=== PATIENT | male | born 1980 | race Two or more races ===

== ENCOUNTER 2024-04-19 10:28 | Inpatient (IN) | payer MEDICAID ==
[~2024-04-19] VITALS: Ht 170.2 cm; Wt 88.0 kg
[2024-04-19] MEDS: IV D5W-0.45% NS +20 KCL 1,000 ML IV PRN (07:30)
[~2024-04-19 10:28] MED LIST: PROPOFOL 200 MG/20 ML BOTTLE ONE
[2024-04-19] MEDS ORDERED: KETOROLAC TROMETHAMINE 15 MG INJ ONE (11:02)
[2024-04-19] MEDS: KETOROLAC TROMETHAMINE 15 MG INJ IVP ONE (11:21)
[2024-04-19 11:50] LABS: BASOPHILS % (AUTO) 0.3 % (0.0-2.0); EOSINOPHILS # (AUTO) 0.1 K/uL (0.0-0.7); EOSINOPHILS % (AUTO) 0.7 % (0.0-7.0); HEMATOCRIT 43.8 % (36.7-47.1); HEMOGLOBIN 14.2 g/dL (12.5-16.3); LYMPHOCYTES # (AUTO) 1.6 K/uL (0.8-4.8); MEAN CORPUSCULAR HEMOGLOBIN 28.7 uug (23.8-33.4); MEAN CORPUSCULAR HGB CONC 32 g/dL (32.5-36.3); MEAN CORPUSCULAR VOLUME 88.9 fL (73.0-96.2); MONOCYTES # (AUTO) 0.6 K/uL (0.1-1.30); MONOCYTES % (AUTO) 8.2 % (0.0-11.0); NEUTROPHILS # (AUTO) 5.1 K/uL (1.8-8.9); NEUTROPHILS % (AUTO) 68.8 % (38.5-71.5); PLATELET COUNT (AUTO) 296 K/uL (152-348); RED BLOOD CELL COUNT(AUTO) 4.93 MIL/uL (4.06-5.63); RED CELL DISTRIBUTION WIDTH 14.6 % (12.1-16.2); WHITE BLOOD COUNT (AUTO) 7.4 K/uL (3.6-10.2)
[2024-04-19 11:57] LABS: DIFFERENTIAL COMMENT 1
[2024-04-19 12:02] LABS: CALCIUM 8.5 mg/dL (8.5-10.1); CARBON DIOXIDE 26 mmol/L (21-32); CHLORIDE 107 mmol/L (98-107); CREATININE 0.8 mg/dL (0.6-1.3); GLUCOSE 173 mg/dL (74-106); POTASSIUM 3.8 mmol/L (3.5-5.1); SODIUM SERUM 142 mmol/L (136-145); UREA NITROGEN, BLOOD 8 mg/dL (7-18)
[2024-04-19 12:11] LABS: ALANINE AMINOTRANSFERASE 26 U/L (16-63); ALBUMIN 3.3 g/dL (3.4-5.0); ALKALINE PHOSPHATASE 72 U/L (50-136); ASPARTATE AMINOTRANSFERASE 5 U/L (15-37); BILIRUBIN,DIRECT 0.1 mg/dL (0.0-0.2); BILIRUBIN,TOTAL 0.5 mg/dL (0.2-1.0); LIPASE 26 U/L (16-77); TOTAL PROTEIN, SERUM 6.6 g/dL (6.4-8.2)
[2024-04-19] MEDS ORDERED: ACETAMINOPHEN 325 MG TABLET PO PRN (12:30)
[2024-04-19] MEDS ORDERED: REMEDY ESSENTIAL ZINC PASTE 113 GM TP PRN (12:30)
[2024-04-19] MEDS ORDERED: ONDANSETRON 4 MG/2 ML VIAL IV PRN (12:30)
[2024-04-19] MEDS ORDERED: MORPHINE SULFATE 2 MG/1 ML DISP.SYRIN IV PRN (12:30)
[2024-04-19] MEDS ORDERED: FENTANYL CITRATE 250 MCG/5 ML AMPUL ONE (14:53)
[2024-04-19] MEDS ORDERED: SEVOFLURANE 250 ML BOTTLE ONE (14:53)
[2024-04-19] MEDS ORDERED: VASOPRESSIN 20 UNIT/ML VIAL ONE (14:54)
[2024-04-19] MEDS ORDERED: LIDOCAINE HCL 1% 20 ML VIAL ONE (15:11)
[2024-04-19] MEDS ORDERED: BUPIVACAINE/EPI PF 0.25% 10 ML VIAL IJ ONE (15:11)
[2024-04-19] MEDS ORDERED: NEOMY/BACITRAC/POLYMI OINT 28.35 GM TUBE ONE (15:12)
[2024-04-19 15:15] VITALS: BP 127/69; TEMP 98.7; O2SAT 96
[2024-04-19 20:00] VITALS: BP 116/74; TEMP 98.8; O2SAT 97
[2024-04-19] MEDS: CELECOXIB 200 MG CAPSULE PO SCH (23:04)
[2024-04-19] MEDS: GABAPENTIN 100 MG CAPSULE PO SCH (23:04)
[2024-04-19] MEDS: ACETAMINOPHEN 325 MG TABLET PO SCH (23:04)
[2024-04-20 04:53] VITALS: BP 101/62; TEMP 97.8; O2SAT 98
[2024-04-20] MEDS: PANTOPRAZOLE SODIUM 40 MG TABLET.DR PO SCH (06:32)
[2024-04-20 06:46] LABS: BASOPHILS % (AUTO) 0.1 % (0.0-2.0); HEMATOCRIT 41.9 % (36.7-47.1); HEMOGLOBIN 13.7 g/dL (12.5-16.3); LYMPHOCYTES # (AUTO) 1.2 K/uL (0.8-4.8); LYMPHOCYTES % (AUTO) 8.5 % (20.5-51.5); MEAN CORPUSCULAR HEMOGLOBIN 29.2 uug (23.8-33.4); MEAN CORPUSCULAR HGB CONC 33 g/dL (32.5-36.3); MEAN CORPUSCULAR VOLUME 89.4 fL (73.0-96.2); MONOCYTES # (AUTO) 0.8 K/uL (0.1-1.30); MONOCYTES % (AUTO) 5.6 % (0.0-11.0); NEUTROPHILS # (AUTO) 12.5 K/uL (1.8-8.9); NEUTROPHILS % (AUTO) 85.8 % (38.5-71.5); PLATELET COUNT (AUTO) 280 K/uL (152-348); RED BLOOD CELL COUNT(AUTO) 4.68 MIL/uL (4.06-5.63); RED CELL DISTRIBUTION WIDTH 14.4 % (12.1-16.2); WHITE BLOOD COUNT (AUTO) 14.6 K/uL (3.6-10.2)
[2024-04-20 06:51] LABS: DIFFERENTIAL COMMENT 1
[2024-04-20 07:00] LABS: CALCIUM 8.3 mg/dL (8.5-10.1); CREATININE 0.7 mg/dL (0.6-1.3); PHOSPHOROUS 3.2 mg/dL (2.5-4.9); POTASSIUM 4.1 mmol/L (3.5-5.1)
[2024-04-20 11:15] VITALS: BP 111/67; TEMP 98.4; O2SAT 97
[2024-04-20 15:21] VITALS: BP 100/57; TEMP 98.2; O2SAT 96
[2024-04-20] MEDS ORDERED: PANT40TA49 PO (17:27)
[2024-04-20] MEDS ORDERED: GABA-532 PO (17:27)
[2024-04-20] MEDS ORDERED: CELE200C PO (17:27)
[2024-04-20 20:49] VITALS: BP 106/74; TEMP 98.9; O2SAT 99
== END 2024-04-20 21:30 | disposition home or self-care (01) | DRG 228 ==
LOC: ER 10:29 → MEDSURG3 13:28
PROVIDERS: ADMIT Nurse Practitioner Acute Care; ATTEND Nurse Practitioner Acute Care
PROC: 0YU60JZ Supplement Left Inguinal Region with Synthetic Substitute, Open Approach (ICD-10-PCS; principal; 2024-04-19)
DX: K40.31 Unilateral inguinal hernia, with obstruction, without gangrene, recurrent (principal); D72.829 Elevated white blood cell count, unspecified; E66.9 Obesity, unspecified; Z68.30 Body mass index [BMI] 30.0-30.9, adult; R73.9 Hyperglycemia, unspecified; K66.0 Peritoneal adhesions (postprocedural) (postinfection)
CPT/HCPCS: 36415; 71045; 83690; 83735; 84100; 84484; 85025; 85730; 93005; A4649; C1781; G0378; J0330; J1100; J1885; J2405; J2765; J3010; J3490